=== PATIENT | male | born 1995 | race Caucasian/White ===

== ENCOUNTER 2017-05-14 22:06 | Emergency (ER) | payer SELFPAY ==
[2017-05-14 22:19] VITALS: BP 143/97
[2017-05-14] MEDS ORDERED: Ketorolac 30 MG/ML SDV IVPUSH ONE (22:38)
[2017-05-14] MEDS ORDERED: Sodium Chloride 0.9% 10 ML Syringe FLUSH PRN (22:38)
[2017-05-14] MEDS ORDERED: Sodium Chloride 0.9% 1,000 ML IV ONE (22:38)
[2017-05-14] MEDS ORDERED: Ondansetron 4 MG/2 ML SDV IVPUSH ONE (22:38)
--- NOTE | 2017-05-14 23:40 | EDM.PDOC ---
ED HPI GENERAL MEDICAL PROBLEM - General Chief Complaint: Respiratory Problem Stated Complaint: COUGH AND CONGESTION Time Seen by Provider: 05/14/17 22:26 Source of Information: Reports: Patient History Limitations: Reports: No Limitations - History of Present Illness INITIAL COMMENTS - FREE TEXT/NARRATIVE: 22-year-old male presents for evaluation treatment of fevers, chills, nausea, vomiting, diarrhea, headaches, sore thraot, body aches and a cough. He reports symptoms the last 4 days. States he's tried chloraseptic spray for the throat but continues to have a sore throat from coughing. He is occasion having a productive cough but is for the most part dry. Reports anything he eats he either vomits up or has diarrhea. He also reports some discomfort to the left ear. He has appreciated some swollen tender lymph nodes. Patient did not have a flu shot this season. Roommates are ill with similar symptoms. Chest Pain Score (Numeric/FACES): 4 - Related Data Allergies Allergy/AdvReac Type Severity Reaction Status Date / Time No Known Allergies Allergy Verified 06/12/16 02:38 Home Meds: Home Meds Codeine/Promethazine [Phenergan with Codeine] 5 ml PO Q6H PRN #120 ml 05/14/17 [ Rx] Past Medical History - Past Health History Medical/Surgical History: Denies Medical/Surgical History Respiratory History: Reports: Asthma - Past Surgical History HEENT Surgical History: Reports: Other (See Below) Social & Family History - Family History Family Medical History: Noncontributory - Tobacco Use Smoking Status *Q: Current Every Day Smoker Years of Tobacco use: 1 Packs/Tins Daily: 3 - Caffeine Use Caffeine Use: Reports: Soda - Alcohol Use Days Per Week of Alcohol Use: 0 - Recreational Drug Use Recreational Drug Use: Yes Recreational Drug Type: Reports: Marijuana/Hashish Recreational Drug Use Frequency: Daily ED ROS GENERAL - Review of Systems Review Of Systems: See Below Constitutional: Reports: Fever, Chills, Malaise, Decreased Appetite, Other ( bodyaches) HEENT: Reports: Ear Pain (left), Throat Pain Respiratory: Reports: Cough, Sputum GI/Abdominal: Reports: Diarrhea, Nausea, Vomiting Neurological: Reports: Headache ED EXAM, GENERAL - Physical Exam Exam: See Below Exam Limited By: No Limitations General Appearance: Alert, WD/WN, Moderate Distress, Other (acutely ill appearing) Ears: Normal External Exam, Normal Canal, Hearing Grossly Normal Ear Exam: Bilateral Ear: Erythema Nose: Normal Inspection Throat/Mouth: Normal Inspection, Normal Lips, Normal Voice, No Airway Compromise , Other (posterior oropharynx erythema, dry mucus membranes) Neck: Normal Inspection, Supple, Lymphadenopathy (L), Lymphadenopathy (R) Respiratory/Chest: No Respiratory Distress, Lungs Clear, Normal Breath Sounds Cardiovascular: Normal Peripheral Pulses, No Murmur, Tachycardia Neurological: Alert, Oriented, Normal Cognition Psychiatric: Normal Affect, Normal Mood Skin Exam: Warm, Dry, Normal Color Course - Vital Signs Last Recorded V/S: Last Vital Signs Temp 36.6 C 05/14/17 22:15 Pulse 111 H 05/14/17 22:15 Resp 22 H 05/14/17 22:15 BP 143/97 H 05/14/17 22:15 Pulse Ox 97 05/14/17 22:15 Orthostatic Blood Pressure [ 120/98 Standing] Orthostatic Blood Pressure [ 143/92 Supine] - Orders/Labs/Meds Orders: Active Orders 24 hr Category Date Time Status Peripheral IV Care [RC] . DIRECTED Care 05/14/17 22:38 Active STREP SCRN A RAPID W CULT CONF [RM] Stat Lab 05/14/17 22:47 Received Peripheral IV Insertion Adult [OM.PC] Routine Oth 05/14/17 22:38 Ordered Labs: Laboratory Tests 05/14/17 05/14/17 Range/Units 22:47 22:47 WBC 9.50 H (4.23-9.07) K/mm3 RBC 5.53 (4.63-6.08) M/mm3 Hgb 16.5 (13.7-17.5) gm/L Hct 46.9 (40.1-51.0) % MCV 84.8 (79.0-92.2) fl MCH 29.8 (25.7-32.2) pg MCHC 35.2 (32.2-35.5) g/dl RDW Std Deviation 37.3 (35.1-43.9) fL Plt Count 197 (163-337) K/mm3 MPV 9.5 (9.4-12.3) fl Neut % (Auto) 62.9 (34.0-67.9) % Lymph % (Auto) 13.8 L (21.8-53.1) % [place] % (Auto) 22.6 H (5.3-12.2) % Eos % (Auto) 0.4 L (0.8-7.0) Baso % (Auto) 0.2 (0.1-1.2) % Neut # (Auto) 5.97 H (1.78-5.38) K/mm3 Lymph # (Auto) 1.31 L (1.32-3.57) K/mm3 [place] # (Auto) 2.15 H (0.30-0.82) K/mm3 Eos # (Auto) 0.04 (0.04-0.54) K/mm3 Baso # (Auto) 0.02 (0.01-0.08) K/mm3 Manual Slide Review Abnormal smear Sodium 137 (136-145) mEq/L Potassium 3.3 L (3.5-5.1) mEq/L Chloride 99 (98-107) mEq/L Carbon Dioxide 26 (21-32) mEq/L Anion Gap 15.3 H (5-15) BUN 6 L (7-18) mg/dL Creatinine 1.1 (0.7-1.3) mg/dL Est Cr Clr Drug Dosing 121.43 mL/min Estimated GFR (MDRD) > 60 (>60) mL/min BUN/Creatinine Ratio 5.5 L (14-18) Glucose 96 (74-106) mg/dL Calcium 9.3 (8.5-10.1) mg/dL Meds: Medications Discontinued Medications Generic Name Dose Route Start Last Admin Trade Name Freq PRN Reason Stop Dose Admin Sodium Chloride 1,000 mls @ 999 mls/hr 05/14/17 22:38 05/14/17 22:52 Normal Saline IV 05/14/17 23:38 999 mls/hr ONETIME ONE Administration Ketorolac Tromethamine 30 mg 05/14/17 22:38 05/14/17 22:53 Toradol IVPUSH 05/14/17 22:39 30 mg ONETIME ONE Administration Ondansetron HCl 4 mg 05/14/17 22:38 05/14/17 22:54 Zofran IVPUSH 05/14/17 22:39 4 mg ONETIME ONE Administration Sodium Chloride 10 ml 05/14/17 22:38 05/14/17 22:55 Saline Flush FLUSH 10 ml ASDIRECTED PRN Administration Keep Vein Open - Re-Assessments/Exams Free Text/Narrative Re-Assessment/Exam: 05/14/17 23:45 Influenza returned positive for type A. I reviewed the lab results with the patient. He feels improved after receiving the toradol, fluids and zofran. He is out of window to start Tamiflu. Recommend symptomatic care with fluids, Tylenol, Motrin and rest. Discharge instructions as documented. Departure - Departure Time of Disposition: 23:47 Disposition: Home, Self-Care 01 Condition: Fair Clinical Impression: Influenza - Discharge Information Prescriptions: Codeine/Promethazine [Phenergan with Codeine] 5 ml PO Q6H PRN #120 ml PRN Reason: Cough Instructions: Influenza, Adult, [id number] Referrals: PCP,None [Primary Care Provider] - Forms: ED Department Discharge Additional Instructions: cough syrup take 5mls PO every 4-6 hours prn cough, max of 30ml/day. symptomatic care including tylenol, motrin and fluids. Expect to be ill for a few weeks. The first week will be the worse. You are are contagious one day before your symptoms started and are contagious until one week after symptoms started. Please return to the ER should your symptoms change worsen. - My Orders Last 24 Hours: My Active Orders 05/14/17 22:38 Peripheral IV Care [RC] . DIRECTED Peripheral IV Insertion Adult [OM.PC] Routine 05/14/17 22:47 STREP SCRN A RAPID W CULT CONF [RM] Stat - Assessment/Plan Last 24 Hours: My Active Orders 05/14/17 22:38 Peripheral IV Care [RC] . DIRECTED Peripheral IV Insertion Adult [OM.PC] Routine 05/14/17 22:47 STREP SCRN A RAPID W CULT CONF [RM] Stat
== END 2017-05-14 23:58 | disposition home or self-care (01) ==
LOC: JD.ED 22:06
DX: J10.1 Influenza due to other identified influenza virus with other respiratory manifestations (principal); F17.210 Nicotine dependence, cigarettes, uncomplicated
CPT/HCPCS: 36415; 80048; 85025; 87081; 87430; 87804; 96361; 96374; 96375; 99284; J1885; J2405; J7040; J7050

== ENCOUNTER 2019-02-07 13:50 | Emergency (ER) | payer BC ==
[2019-02-07 14:04] VITALS: BP 122/70; PULSE 58
[2019-02-07] MEDS ORDERED: Sodium Chloride 0.9% 10 ML Syringe FLUSH PRN (14:30)
--- NOTE | 2019-02-07 14:37 | EDM.PDOC ---
ED HPI GENERAL MEDICAL PROBLEM - General Chief Complaint: Respiratory Problem Stated Complaint: LIGHT HEADED AND SOB Time Seen by Provider: 02/07/19 14:13 Source of Information: Reports: Patient History Limitations: Reports: No Limitations - History of Present Illness INITIAL COMMENTS - FREE TEXT/NARRATIVE: 23-year-old male presents for evaluation and treatment of lightheadedness and shortness of breath. Patient reports he was at work. Reports around 12:30 he had sudden onset of lightheadedness and shortness of breath. 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 He also reports numbness to his fourth and fifth fingers bilaterally. He states that coworkers told him he looked flushed. He states that he has this has happened in the past but is not happening quite some time. Said it was due to a low heart rate. Patient is found a pulse of 58 upon arrival to the ER. He is denying any chest pain, nausea , vomiting, syncope, pain or worsening swelling in his legs. Reports his legs are normally slightly swollen after being on his feet all day for work. He feels that the lightheadedness is worse with exertion. He denies any recent cough or cold symptoms. No recent travel. He has a history of asthma and uses a Breo inhaler daily. He states that he dates about 5 or 6 times a day. Primary care provider is Deyanira Fernandes. Onset: Today, Sudden - Related Data Allergies Allergy/AdvReac Type Severity Reaction Status Date / Time No Known Allergies Allergy Verified 06/12/16 02:38 Home Meds: Home Meds Codeine/Promethazine [Phenergan with Codeine] 5 ml PO Q6H PRN #120 ml 05/14/17 [ Rx] Past Medical History - Past Health History Medical/Surgical History: Denies Medical/Surgical History HEENT History: Reports: Impaired Vision Other HEENT History: wears eyeglasses. Cardiovascular History: Reports: Syncope, Other (See Below) Other Cardiovascular History: low HR Respiratory History: Reports: Asthma Musculoskeletal History: Reports: Fracture Psychiatric History: Reports: Anxiety, Depression - Infectious Disease History Infectious Disease History: Reports: Chicken Pox - Past Surgical History HEENT Surgical History: Reports: Other (See Below) Social & Family History - Family History Family Medical History: Noncontributory - Tobacco Use Smoking Status *Q: Current Every Day Smoker Years of Tobacco use: 5 Packs/Tins Daily: 0 - Caffeine Use Caffeine Use: Reports: Coffee - Recreational Drug Use Recreational Drug Use: Yes Recreational Drug Type: Reports: Marijuana/Hashish Recreational Drug Use Frequency: Weekly ED ROS GENERAL - Review of Systems Review Of Systems: See Below Constitutional: Denies: Fever, Chills Respiratory: Reports: Shortness of Breath. Denies: Cough Cardiovascular: Reports: Lightheadedness. Denies: Chest Pain, Syncope GI/Abdominal: Denies: Abdominal Pain, Nausea, Vomiting Neurological: Denies: Syncope ED EXAM, GENERAL - Physical Exam Exam: See Below Exam Limited By: No Limitations General Appearance: Alert, WD/WN, No Apparent Distress Eye Exam: Bilateral Eye: Normal Inspection Ears: Normal External Exam Nose: Normal Inspection Throat/Mouth: Normal Inspection, Normal Lips, Normal Oropharynx, Normal Voice, No Airway Compromise Respiratory/Chest: No Respiratory Distress, Lungs Clear, Normal Breath Sounds Cardiovascular: Normal Peripheral Pulses, Regular Rate, Rhythm, No Murmur GI/Abdominal: Normal Bowel Sounds, Soft, Non-Tender Neurological: Alert, Oriented, Normal Cognition Psychiatric: Normal Affect, Normal Mood Skin Exam: Warm, Dry, Normal Color EKG INTERPRETATION EKG Date: 02/07/19 Time: 14:06 Rhythm: NSR Rate (Beats/Min): 58 [place]: Normal P-Wave: Present QRS: Normal ST-T: Normal QT: Normal EKG Interpretation Comments: NSR at 58 bpm. No ischemic changes. Q wavs II, III and AVF. Reviewed by myself and Dr. Eastman. Course - Vital Signs Last Recorded V/S: Last Vital Signs Temp 97.9 F 02/07/19 14:00 Pulse 58 L 02/07/19 14:00 Resp 28 H 02/07/19 14:00 BP 122/70 02/07/19 14:00 Pulse Ox 98 02/07/19 14:00 - Orders/Labs/Meds Orders: Active Orders 24 hr Category Date Time Status Cardiac Monitoring [RC] . DIRECTED Care 02/07/19 14:30 Active EKG Documentation Completion [RC] ASDIRECTED Care 02/07/19 14:30 Active Peripheral IV Care [RC] . DIRECTED Care 02/07/19 14:30 Active Peripheral IV Insertion Adult [OM.PC] Routine Oth 02/07/19 14:30 Ordered EKG 12 Lead [EK] Stat Ther 02/07/19 14:30 Ordered Labs: Laboratory Tests 02/07/19 02/07/19 02/07/19 Range/Units 14:57 14:57 14:57 WBC 10.00 H (4.23-9.07) K/mm3 RBC 5.37 (4.63-6.08) M/mm3 Hgb 15.9 (13.7-17.5) gm/dl Hct 45.3 (40.1-51.0) % MCV 84.4 (79.0-92.2) fl MCH 29.6 (25.7-32.2) pg MCHC 35.1 (32.2-35.5) g/dl RDW Std Deviation 37.7 (35.1-43.9) fL Plt Count 229 (163-337) K/mm3 MPV 9.6 (9.4-12.3) fl Neut % (Auto) 76.6 H (34.0-67.9) % Lymph % (Auto) 13.9 L (21.8-53.1) % [place] % (Auto) 8.0 (5.3-12.2) % Eos % (Auto) 0.9 (0.8-7.0) Baso % (Auto) 0.4 (0.1-1.2) % Neut # (Auto) 7.66 H (1.78-5.38) K/mm3 Lymph # (Auto) 1.39 (1.32-3.57) K/mm3 [place] # (Auto) 0.80 (0.30-0.82) K/mm3 Eos # (Auto) 0.09 (0.04-0.54) K/mm3 Baso # (Auto) 0.04 (0.01-0.08) K/mm3 D-Dimer, Quantitative 0.20 (0.19-0.50) mg/L Sodium 139 (136-145) mEq/L Potassium 3.4 L (3.5-5.1) mEq/L Chloride 104 (98-107) mEq/L Carbon Dioxide 25 (21-32) mEq/L Anion Gap 13.4 (5-15) BUN 11 (7-18) mg/dL Creatinine 0.9 (0.7-1.3) mg/dL Est Cr Clr Drug Dosing 147.15 mL/min Estimated GFR (MDRD) > 60 (>60) mL/min BUN/Creatinine Ratio 12.2 L (14-18) Glucose 96 (74-106) mg/dL Calcium 9.3 (8.5-10.1) mg/dL Magnesium 2.0 (1.8-2.4) mg/dl Total Bilirubin 0.6 (0.2-1.0) mg/dL AST 19 (15-37) U/L ALT 34 (16-63) U/L Alkaline Phosphatase 65 (46-116) U/L C-Reactive Protein < 0.2 (<1.0) mg/dL Total Protein 7.6 (6.4-8.2) g/dl Albumin 4.5 (3.4-5.0) g/dl Globulin 3.1 gm/dL Albumin/Globulin Ratio 1.5 (1-2) TSH 3rd Generation 1.433 (0.358-3.74) uIU/mL Meds: Medications Discontinued Medications Generic Name Dose Route Start Last Admin Trade Name Freq PRN Reason Stop Dose Admin Sodium Chloride 10 ml 02/07/19 14:30 Saline Flush FLUSH ASDIRECTED PRN Keep Vein Open - Radiology Interpretation Free Text/Narrative:: chest xray shows no acute intrathoracic process. Formal radiology read pending. - Re-Assessments/Exams Free Text/Narrative Re-Assessment/Exam: 02/07/19 16:50 I reviewed the labs, EKG and imaging with the patient. I did review his records and he had PFTs and a Holter monitor done recently. No abnormality has been found on the studies. No known etiology for his lightheadedness and shortness of breath at this time. I recommend that he follows up with his primary care provider. I cannot find a reason for his symptoms at this time. I'm not finding anything emergent at this time. We'll discharge home. Discharge instructions as documented. Departure - Departure Time of Disposition: 16:51 Disposition: Home, Self-Care 01 Condition: Good Clinical Impression: Light-headed feeling - Discharge Information *PRESCRIPTION DRUG MONITORING PROGRAM REVIEWED*: No *COPY OF PRESCRIPTION DRUG MONITORING REPORT IN PATIENT ANTHONY: No Instructions: Dizziness, [id number] Referrals: Nita Fernandes PA-C [Primary Care Provider] - Forms: ED Department Discharge Additional Instructions: Follow-up with your primary care provider within 2 weeks for recheck of your symptoms. make sure you are drinking plenty of fluids. Recommend reducing or stopping vaping if you are able to. Please return to the ER if your symptoms change or worsen. - My Orders Last 24 Hours: My Active Orders 02/07/19 14:30 Cardiac Monitoring [RC] . DIRECTED EKG Documentation Completion [RC] ASDIRECTED Peripheral IV Care [RC] . DIRECTED Peripheral IV Insertion Adult [OM.PC] Routine EKG 12 Lead [EK] Stat - Assessment/Plan Last 24 Hours: My Active Orders 02/07/19 14:30 Cardiac Monitoring [RC] . DIRECTED EKG Documentation Completion [RC] ASDIRECTED Peripheral IV Care [RC] . DIRECTED Peripheral IV Insertion Adult [OM.PC] Routine EKG 12 Lead [EK] Stat
--- NOTE | 2019-02-07 15:27 | CR ---
Chest: Two views of the chest were obtained. Comparison: Previous chest x-ray of 06/25/18. Heart size and mediastinum are normal. Lungs are clear. Bony structures are unremarkable. Impression: 1. Nothing acute is appreciated on two-view chest x-ray. Diagnostic code #1
== END 2019-02-07 16:56 | disposition home or self-care (01) ==
LOC: JD.ED 13:50
DX: R42 Dizziness and giddiness (principal); F17.200 Nicotine dependence, unspecified, uncomplicated
CPT/HCPCS: 36415; 71046; 71046-26; 80053; 83735; 84443; 85025; 85379; 86140; 93005; 99285-25

== ENCOUNTER 2020-05-05 20:49 | Emergency (ER) | payer SELFPAY ==
--- NOTE | 2020-05-05 21:36 | EDM.PDOCBH ---
ED HPI GENERAL MEDICAL PROBLEM - General Chief Complaint: Behavioral/Psych Stated Complaint: LAW ENFORCEMENT Time Seen by Provider: 05/05/20 21:35 - History of Present Illness INITIAL COMMENTS - FREE TEXT/NARRATIVE: 25-year-old male brought in by law enforcement after suicidal attempt. Patient took 30 trazodone 50 mg tablets and he left the house with a shotgun in a single shelf. [employer] deputies caught up with him and found him with an unloaded shotgun and the one shell in the mid console of the car. Patient informed that [facility] that he was getting take his life. [facility] kindly brought the patient in for further evaluation and treatment. At the time of my initial evaluation the patient is somewhat sedated this is roughly 2 to 2-1/2 hours after the time of ingestion. Patient has been under a lot of stress lately he will not go into any more details than that. He denies any illicit drugs at this point - Related Data Allergies Allergy/AdvReac Type Severity Reaction Status Date / Time No Known Allergies Allergy Verified 05/05/20 20:56 Home Meds: Home Meds . [No Known Home Meds] 05/05/20 [History] Past Medical History - Past Health History Medical/Surgical History: Denies Medical/Surgical History HEENT History: Reports: Impaired Vision Other HEENT History: wears eyeglasses. Cardiovascular History: Reports: Syncope, Other (See Below) Other Cardiovascular History: low HR Respiratory History: Reports: Asthma Musculoskeletal History: Reports: Fracture Psychiatric History: Reports: Anxiety, Depression - Infectious Disease History Infectious Disease History: Reports: Chicken Pox - Past Surgical History HEENT Surgical History: Reports: Other (See Below) Other HEENT Surgeries/Procedures: fx jaw. Social & Family History - Family History Family Medical History: No Pertinent Family History - Tobacco Use Tobacco Use Status *Q: Never Tobacco User - Caffeine Use Caffeine Use: Reports: Coffee ED ROS GENERAL - Review of Systems Review Of Systems: See Below Constitutional: Reports: No Symptoms HEENT: Reports: No Symptoms Respiratory: Reports: No Symptoms Cardiovascular: Reports: No Symptoms Endocrine: Reports: No Symptoms GI/Abdominal: Reports: No Symptoms : Reports: No Symptoms Musculoskeletal: Reports: No Symptoms Skin: Reports: No Symptoms ED EXAM, BEHAVIORAL HEALTH - Physical Exam Exam: See Below Exam Limited By: Other (Mildly sedated at this time) General Appearance: No Apparent Distress, Other (Mildly sedated). No: Anxious Eye Exam: Bilateral Eye: Normal Inspection, PERRL Ears: Normal External Exam, Normal Canal, Hearing Grossly Normal, Normal TMs Nose: Normal Inspection, Normal Mucosa, No Blood Throat/Mouth: Normal Inspection, Normal Lips, Normal Teeth, Normal Gums, Normal Oropharynx, Normal Voice, No Airway Compromise Head: Atraumatic, Normocephalic Neck: Normal Inspection, Supple, Non-Tender Respiratory/Chest: No Respiratory Distress, Lungs Clear, Normal Breath Sounds Cardiovascular: Normal Peripheral Pulses, Regular Rate, Rhythm, No Edema GI/Abdominal: Soft, Non-Tender, No Organomegaly, No Distention (Male) Exam: No Hernia Back Exam: Normal Inspection. No: CVA Tenderness (L), CVA Tenderness (R) Extremities: Normal Inspection, No Pedal Edema Neurological: Normal Cognition, Other (Slow to respond and a little sedated but he seems to respond normally) Skin Exam: Warm, Dry, Intact COURSE, BEHAVIORAL HEALTH COMP - Course Vital Signs: Last Vital Signs Temp 36.6 C 05/05/20 20:51 Pulse 55 L 05/06/20 04:56 Resp 16 05/06/20 04:56 BP 119/61 05/06/20 04:56 Pulse Ox 99 05/06/20 04:56 Orders, Labs, Meds: Active Orders 24 hr Category Date Time Status Cardiac Monitoring [RC] . DIRECTED Care 05/05/20 21:48 Active EKG Documentation Completion [RC] STAT Care 05/05/20 21:43 Active EKG Documentation Completion [RC] STAT Care 05/06/20 00:30 Active Lactated Ringers [Ringers, Lactated] 1,000 ml Med 05/05/20 22:00 Active IV ASDIRECTED Medication Orders Lactated Ringer's (Ringers, Lactated) 1,000 mls @ 150 mls/hr IV ASDIRECTED VINEET Last Admin: 05/05/20 23:16 Dose: 150 mls/hr Documented by: Infusion: 05/05/20 23:16 Dose: 150 mls/hr Documented by: Admin: 05/05/20 22:15 Dose: 150 mls/hr Documented by: ELIAZAR Laboratory Tests 05/05/20 05/05/20 05/06/20 Range/Units 21:54 21:54 00:43 WBC (4.23-9.07) K/mm3 RBC (4.63-6.08) M/mm3 Hgb (13.7-17.5) gm/dl Hct (40.1-51.0) % MCV (79.0-92.2) fl MCH (25.7-32.2) pg MCHC (32.2-35.5) g/dl RDW Std Deviation (35.1-43.9) fL Plt Count (163-337) K/mm3 MPV (9.4-12.3) fl Neut % (Auto) (34.0-67.9) % Lymph % (Auto) (21.8-53.1) % Williamson % (Auto) (5.3-12.2) % Eos % (Auto) (0.8-7.0) Baso % (Auto) (0.1-1.2) % Neut # (Auto) (1.78-5.38) K/mm3 Lymph # (Auto) (1.32-3.57) K/mm3 Williamson # (Auto) (0.30-0.82) K/mm3 Eos # (Auto) (0.04-0.54) K/mm3 Baso # (Auto) (0.01-0.08) K/mm3 PT 11.4 (9.7-12.0) SECONDS INR 1.07 APTT 26.2 (21.7-31.4) SECONDS Sodium 140 (136-145) mEq/L Potassium 3.6 (3.5-5.1) mEq/L Chloride 104 (98-107) mEq/L Carbon Dioxide 25 (21-32) mEq/L Anion Gap 14.6 (5-15) BUN 18 (7-18) mg/dL Creatinine 1.1 (0.7-1.3) mg/dL Est Cr Clr Drug Dosing 118.32 mL/min Estimated GFR (MDRD) > 60 (>60) mL/min BUN/Creatinine Ratio 16.4 (14-18) Glucose 102 (74-106) mg/dL Calcium 9.6 (8.5-10.1) mg/dL Magnesium 1.9 (1.8-2.4) mg/dl Total Bilirubin 0.4 (0.2-1.0) mg/dL AST 20 (15-37) U/L ALT 32 (16-63) U/L Alkaline Phosphatase 71 (46-116) U/L Troponin I < 0.017 (0.00-0.056) ng/mL Total Protein 7.8 (6.4-8.2) g/dl Albumin 4.6 (3.4-5.0) g/dl Globulin 3.2 gm/dL Albumin/Globulin Ratio 1.4 (1-2) Urine Color Yellow (Yellow) Urine Appearance Clear (Clear) Urine pH 7.0 (5.0-8.0) Ur Specific [place] 1.020 (1.005-1.030) Urine Protein Negative (Negative) Urine Glucose (UA) Negative (Negative) Urine Ketones Negative (Negative) Urine Occult Blood Negative (Negative) Urine Nitrite Negative (Negative) Urine Bilirubin Negative (Negative) Urine Urobilinogen 0.2 (0.2-1.0) Ur Leukocyte Esterase Negative (Negative) Salicylates (2.8-20) mg/dL Urine Opiates Screen (UDTNVW=389) Ur Buprenorphine Scrn (CUTOFF=10) Ur Oxycodone Screen (EEI3AR=165) Urine Methadone Screen (QMW6QK=329) Ur Propoxyphene Screen (WROXEA=480) Acetaminophen (10-30) ug/mL Ur Barbiturates Screen (DYELWZ=087) Ur Tricyclics Screen (JCYKBF=095) Ur Phencyclidine Scrn (CUTOFF=25) Ur Amphetamine Screen (KCYLHG=853) U Methamphetamines Scrn (ANGIGO=612) U Benzodiazepines Scrn (YDLWIX=047) U Cocaine Metab Screen (GIXQQC=483) U Marijuana (THC) Screen (CUTOFF=50) Ethyl Alcohol 0.00 (0.00) gm% SARS-CoV-2 RNA (MILLER) (NEGATIVE) 05/06/20 05/06/20 05/06/20 Range/Units 00:43 01:41 01:41 WBC (4.23-9.07) K/mm3 RBC (4.63-6.08) M/mm3 Hgb (13.7-17.5) gm/dl Hct (40.1-51.0) % MCV (79.0-92.2) fl MCH (25.7-32.2) pg MCHC (32.2-35.5) g/dl RDW Std Deviation (35.1-43.9) fL Plt Count (163-337) K/mm3 MPV (9.4-12.3) fl Neut % (Auto) (34.0-67.9) % Lymph % (Auto) (21.8-53.1) % Williamson % (Auto) (5.3-12.2) % Eos % (Auto) (0.8-7.0) Baso % (Auto) (0.1-1.2) % Neut # (Auto) (1.78-5.38) K/mm3 Lymph # (Auto) (1.32-3.57) K/mm3 Williamson # (Auto) (0.30-0.82) K/mm3 Eos # (Auto) (0.04-0.54) K/mm3 Baso # (Auto) (0.01-0.08) K/mm3 PT (9.7-12.0) SECONDS INR APTT (21.7-31.4) SECONDS Sodium (136-145) mEq/L Potassium (3.5-5.1) mEq/L Chloride (98-107) mEq/L Carbon Dioxide (21-32) mEq/L Anion Gap (5-15) BUN (7-18) mg/dL Creatinine (0.7-1.3) mg/dL Est Cr Clr Drug Dosing mL/min Estimated GFR (MDRD) (>60) mL/min BUN/Creatinine Ratio (14-18) Glucose (74-106) mg/dL Calcium (8.5-10.1) mg/dL Magnesium (1.8-2.4) mg/dl Total Bilirubin (0.2-1.0) mg/dL AST (15-37) U/L ALT (16-63) U/L Alkaline Phosphatase (46-116) U/L Troponin I (0.00-0.056) ng/mL Total Protein (6.4-8.2) g/dl Albumin (3.4-5.0) g/dl Globulin gm/dL Albumin/Globulin Ratio (1-2) Urine Color (Yellow) Urine Appearance (Clear) Urine pH (5.0-8.0) Ur Specific [place] (1.005-1.030) Urine Protein (Negative) Urine Glucose (UA) (Negative) Urine Ketones (Negative) Urine Occult Blood (Negative) Urine Nitrite (Negative) Urine Bilirubin (Negative) Urine Urobilinogen (0.2-1.0) Ur Leukocyte Esterase (Negative) Salicylates 0.7 L (2.8-20) mg/dL Urine Opiates Screen Negative (MZPXYW=955) Ur Buprenorphine Scrn Negative (CUTOFF=10) Ur Oxycodone Screen Negative (LHC3RC=082) Urine Methadone Screen Negative (NRU8DL=306) Ur Propoxyphene Screen Negative (DLYDCF=974) Acetaminophen 0 L (10-30) ug/mL Ur Barbiturates Screen Negative (MCSPDJ=790) Ur Tricyclics Screen Negative (LOPLSF=816) Ur Phencyclidine Scrn Negative (CUTOFF=25) Ur Amphetamine Screen Negative (TLRPAL=224) U Methamphetamines Scrn Negative (VOSBHR=365) U Benzodiazepines Scrn Negative (WIVGTZ=071) U Cocaine Metab Screen Negative (DVJNLX=956) U Marijuana (THC) Screen Presumptive positive H (CUTOFF=50) Ethyl Alcohol (0.00) gm% SARS-CoV-2 RNA (MILLER) (NEGATIVE) 05/06/20 05/06/20 Range/Units 03:11 03:15 WBC 9.72 H (4.23-9.07) K/mm3 RBC 5.16 (4.63-6.08) M/mm3 Hgb 15.0 (13.7-17.5) gm/dl Hct 43.8 (40.1-51.0) % MCV 84.9 (79.0-92.2) fl MCH 29.1 (25.7-32.2) pg MCHC 34.2 (32.2-35.5) g/dl RDW Std Deviation 36.6 (35.1-43.9) fL Plt Count 246 (163-337) K/mm3 MPV 10.0 (9.4-12.3) fl Neut % (Auto) 64.0 (34.0-67.9) % Lymph % (Auto) 25.3 (21.8-53.1) % Williamson % (Auto) 8.5 (5.3-12.2) % Eos % (Auto) 1.7 (0.8-7.0) Baso % (Auto) 0.4 (0.1-1.2) % Neut # (Auto) 6.21 H (1.78-5.38) K/mm3 Lymph # (Auto) 2.46 (1.32-3.57) K/mm3 Williamson # (Auto) 0.83 H (0.30-0.82) K/mm3 Eos # (Auto) 0.17 (0.04-0.54) K/mm3 Baso # (Auto) 0.04 (0.01-0.08) K/mm3 PT (9.7-12.0) SECONDS INR APTT (21.7-31.4) SECONDS Sodium (136-145) mEq/L Potassium (3.5-5.1) mEq/L Chloride (98-107) mEq/L Carbon Dioxide (21-32) mEq/L Anion Gap (5-15) BUN (7-18) mg/dL Creatinine (0.7-1.3) mg/dL Est Cr Clr Drug Dosing mL/min Estimated GFR (MDRD) (>60) mL/min BUN/Creatinine Ratio (14-18) Glucose (74-106) mg/dL Calcium (8.5-10.1) mg/dL Magnesium (1.8-2.4) mg/dl Total Bilirubin (0.2-1.0) mg/dL AST (15-37) U/L ALT (16-63) U/L Alkaline Phosphatase (46-116) U/L Troponin I (0.00-0.056) ng/mL Total Protein (6.4-8.2) g/dl Albumin (3.4-5.0) g/dl Globulin gm/dL Albumin/Globulin Ratio (1-2) Urine Color (Yellow) Urine Appearance (Clear) Urine pH (5.0-8.0) Ur Specific [place] (1.005-1.030) Urine Protein (Negative) Urine Glucose (UA) (Negative) Urine Ketones (Negative) Urine Occult Blood (Negative) Urine Nitrite (Negative) Urine Bilirubin (Negative) Urine Urobilinogen (0.2-1.0) Ur Leukocyte Esterase (Negative) Salicylates (2.8-20) mg/dL Urine Opiates Screen (YFFUAX=502) Ur Buprenorphine Scrn (CUTOFF=10) Ur Oxycodone Screen (QNW3CB=758) Urine Methadone Screen (ORI2PD=715) Ur Propoxyphene Screen (VHBGYC=696) Acetaminophen (10-30) ug/mL Ur Barbiturates Screen (RRHXUK=057) Ur Tricyclics Screen (BLKUFZ=499) Ur Phencyclidine Scrn (CUTOFF=25) Ur Amphetamine Screen (UEYVRW=174) U Methamphetamines Scrn (VRNNLW=597) U Benzodiazepines Scrn (ALJSEK=681) U Cocaine Metab Screen (JTDEHJ=268) U Marijuana (THC) Screen (CUTOFF=50) Ethyl Alcohol (0.00) gm% SARS-CoV-2 RNA (MILLER) Negative (NEGATIVE) Medications Generic Name Dose Route Start Last Admin Trade Name Freq PRN Reason Stop Dose Admin Lactated Ringer's 1,000 mls @ 150 mls/hr 05/05/20 22:00 05/05/20 23:16 Ringers, Lactated IV 150 mls/hr ASDIRECTED VINEET Administration Discontinued Medications Generic Name Dose Route Start Last Admin Trade Name Freq PRN Reason Stop Dose Admin Lactated Ringer's 1,000 mls @ 999 mls/hr 05/05/20 21:49 05/05/20 22:15 Ringers, Lactated IV 05/05/20 22:49 999 mls/hr .BOLUS ONE Administration Lactated Ringer's 1,000 mls @ 999 mls/hr 05/05/20 21:50 05/05/20 23:39 Ringers, Lactated IV 05/05/20 22:50 999 mls/hr .BOLUS ONE Administration Magnesium Sulfate 4 gm/ Premix 50 mls @ 12.5 mls/hr 05/05/20 21:57 05/05/20 22:15 IV 05/06/20 01:56 12.5 mls/hr ONETIME ONE Administration Potassium Chloride 40 meq 05/06/20 00:30 Klor-Con M20 PO 05/06/20 00:31 ONETIME ONE Discharge vs Psych Eval/Treatment:: 05/05/20 22:17 Patient is EKG shows some QT prolongation we will start him on IV magnesium start him on IV fluids. Case reviewed with poison control. 05/06/20 01:31 1 discussed the situation with poison control the patient is doing better at this point he still has some magnesium running. But if he is stable he should be clear shortly and I will start finding a psychiatric unit for him. 05/06/20 05:41 Patient continues to do well. I discussed the situation with Dr. Harper, psychiatrist at [facility] is kind enough to accept the patient. Departure - Departure Time of Disposition: 05:42 Disposition: DC/Tfer to Psych Hosp/Unit 65 Clinical Impression: Suicide attempt, Drug overdose, intentional - Discharge Information Referrals: PCP,None [Primary Care Provider] - Forms: ED Department Discharge, ED Return to Work/School Form Sepsis Event Note (ED) - Evaluation Sepsis Screening Result: No Definite Risk - Focused Exam Vital Signs: Vital Signs Temp Pulse Resp BP Pulse Ox 05/06/20 04:56 55 L 16 119/61 99 05/06/20 02:44 66 18 103/56 L 96 05/05/20 20:51 36.6 C 81 16 148/74 H 97 - My Orders Last 24 Hours: My Active Orders 05/05/20 21:43 EKG Documentation Completion [RC] STAT 05/05/20 21:48 Cardiac Monitoring [RC] . DIRECTED 05/05/20 22:00 Lactated Ringers [Ringers, Lactated] 1,000 ml IV ASDIRECTED 05/06/20 00:30 EKG Documentation Completion [RC] STAT - Assessment/Plan Last 24 Hours: My Active Orders 05/05/20 21:43 EKG Documentation Completion [RC] STAT 05/05/20 21:48 Cardiac Monitoring [RC] . DIRECTED 05/05/20 22:00 Lactated Ringers [Ringers, Lactated] 1,000 ml IV ASDIRECTED 05/06/20 00:30 EKG Documentation Completion [RC] STAT
[2020-05-05] MEDS ORDERED: Lactated Ringers 1,000 ML IV ONE ×2 (21:49→21:50)
[2020-05-05] MEDS ORDERED: Magnesium Sulfate/Water 4 GM in Premix Bag 1 BAG IV ONE (21:57)
[2020-05-05] MEDS: Lactated Ringers 1,000 ML IV SCH ×2 (22:15→23:16)
[2020-05-06] MEDS ORDERED: Potassium Chloride 20 MEQ Tab.ER PO ONE ×2 (00:30→08:00)
[2020-05-06 09:08] VITALS: BP 141/79; PULSE 66
== END 2020-05-06 09:15 ==
LOC: JD.ED 20:49
DX: T43.212A Poisoning by selective serotonin and norepinephrine reuptake inhibitors, intentional self-harm, initial encounter (principal); J45.909 Unspecified asthma, uncomplicated; Z20.828 Contact with and (suspected) exposure to other viral communicable diseases
CPT/HCPCS: 36415; 80053; 80306; 80307; 81003; 83735; 84484; 85025; 85610; 85730; 87635; 93005; 96365; 96366; 99285; A9270; J3475; J7120; U0002

== ENCOUNTER 2021-08-29 20:58 | Emergency (ER) | payer SELFPAY ==
[2021-08-29 21:11] VITALS: BP 137/77; PULSE 88
[2021-08-29] MEDS ORDERED: Ketorolac 60 MG/2 ML SDV IM ONE (21:49)
== END 2021-08-29 23:16 | disposition home or self-care (01) ==
LOC: JD.ED 20:58
DX: S83.92XA Sprain of unspecified site of left knee, initial encounter (principal); W22.09XA Striking against other stationary object, initial encounter
CPT/HCPCS: 73562; 96372; 99283; J1885

== ENCOUNTER 2022-08-01 21:13 | Emergency (ER) | payer SELFPAY ==
[2022-08-01 21:22] VITALS: BP 148/89; PULSE 88
[2022-08-01] MEDS ORDERED: HYDROmorphone 0.5 MG/0.5 ML Syringe IVPUSH ONE (21:52)
[2022-08-01] MEDS ORDERED: Ondansetron 4 MG/2 ML SDV IVPUSH ONE (21:52)
[2022-08-01] MEDS ORDERED: Sodium Chloride 0.9% 1,000 ML IV ONE (21:52)
== END 2022-08-02 00:10 | disposition home or self-care (01) ==
LOC: JD.ED 21:13
DX: N20.0 Calculus of kidney (principal); Z86.16 Personal history of COVID-19
CPT/HCPCS: 36415; 74176; 80053; 81001; 85025; 96361; 96374; 96375; 99284; J1170; J2405; J7030

== ENCOUNTER 2022-08-29 18:41 | Emergency (ER) | payer SELFPAY ==
[2022-08-29 18:46] VITALS: BP 160/93; PULSE 115
[2022-08-29] MEDS ORDERED: Morphine 2 MG/ML SYRINGE IVPUSH ONE (20:15)
[2022-08-29] MEDS ORDERED: Potassium Chloride 20 MEQ Tab.ER PO ONE (20:41)
== END 2022-08-29 21:03 | disposition home or self-care (01) ==
LOC: JD.ED 18:41
DX: S09.90XA Unspecified injury of head, initial encounter (principal); S80.211A Abrasion, right knee, initial encounter; S60.511A Abrasion of right hand, initial encounter; S80.212A Abrasion, left knee, initial encounter; S20.411A Abrasion of right back wall of thorax, initial encounter; Z86.16 Personal history of COVID-19; Y04.0XXA Assault by unarmed brawl or fight, initial encounter
CPT/HCPCS: 36415; 70450; 71260; 72125; 74177; 80053; 84484; 85025; 85610; 93005; 96374; 99284; A9270; J2270

== ENCOUNTER 2024-01-29 16:45 | Emergency (ER) | payer BC, MEDICAID | END 2024-01-29 17:40 | disposition left against medical advice (07) | LOC: JD.ED 16:45 | DX: Z53.21 Procedure and treatment not carried out due to patient leaving prior to being seen by health care provider (principal) ==

== ENCOUNTER 2024-04-26 09:20 | Emergency (ER) | payer BC, MEDICAID ==
[2024-04-26] MEDS: Ketorolac 30 MG/ML SDV IM ONE (10:46)
[2024-04-26 11:34] VITALS: BP 128/76; PULSE 65
== END 2024-04-26 11:53 | disposition home or self-care (01) ==
LOC: JD.ED 09:20
DX: M54.50 Low back pain, unspecified (principal); J45.909 Unspecified asthma, uncomplicated; F17.210 Nicotine dependence, cigarettes, uncomplicated; Z86.16 Personal history of COVID-19; Z79.899 Other long term (current) drug therapy
CPT/HCPCS: 72131; 96372; 99283; J1885